=== PATIENT | female | born 1955 | race Caucasian/White ===

== ENCOUNTER 2023-05-24 07:59 | Day surgery (SDC) | payer MEDICARE ==
[~2023-05-24 07:59] MED LIST: Midazolam 1 MG/ML 2 ML SDV ONE; Propofol 200 MG/20 ML SDV ONE; fentaNYL 100 MCG/2 ML SDV ONE
[2023-05-24] MEDS ORDERED: ceFAZolin 2 GM in Premix Bag 1 BAG IV ONE (08:30)
[2023-05-24] MEDS ORDERED: Lactated Ringers 1,000 ML IV SCH (08:30)
[2023-05-24] MEDS ORDERED: Acetaminophen 500 MG Tab PO ONE (08:30)
[2023-05-24] MEDS ORDERED: Lidocaine 1% with EPINEPHrine 1:100,000 50 ML MDV ONE (10:08)
[2023-05-24] MEDS ORDERED: Bupivacaine 0.5% 50 ML MDV ONE (10:08)
[2023-05-24] MEDS ORDERED: Bacitracin Oint 1 GM U/D Packet ONE (10:08)
== END 2023-05-24 12:40 | disposition home or self-care (01) ==
LOC: JP.SDS 07:59
PROVIDERS: ATTEND Student in an Organized Health Care Education/Training Program
DX: L72.0 Epidermal cyst (principal); K52.832 Lymphocytic colitis; K20.0 Eosinophilic esophagitis; I10 Essential (primary) hypertension; E66.9 Obesity, unspecified; Z68.27 Body mass index [BMI] 27.0-27.9, adult; Z79.899 Other long term (current) drug therapy; Z88.1 Allergy status to other antibiotic agents
CPT/HCPCS: 11423; 12042; 88304; A9270; J0690; J2250; J2704; J3010; J3490; J7120